=== PATIENT | female | born 1945 | race Caucasian/White ===

== ENCOUNTER 2016-06-23 12:37 | Observation (INO) | payer MEDICARE, OTHER ==
[2016-06-19 13:32] LABS: BASOPHILS 0.2 %; BASOPHILS ABSOLUTE 0.02 10/3/uL (0.0-0.16); EOSINOPHILS 1.8 %; EOSINOPHILS ABSOLUTE 0.15 10/3/uL (0.0-0.53); IMMATURE GRANULOCYTES 0.2 %; IMMATURE GRANULOCYTES ABSOLUTE 0.02 10/3/uL (0.0-0.11); LYMPHOCYTES 28.3 %; LYMPHOCYTES ABSOLUTE 2.36 10/3/uL (0.67-4.30); MEAN CORPUS HGB CONC 34.3 g/dL (32.0-36.0); MEAN CORPUSCULAR HEMOGLOB 29.4 pg (26.0-34.0); MEAN CORPUSCULAR VOLUME 85.8 fL (80-100); MEAN PLATELET VOLUME 11.2 fL (9.2-13.0); MONOCYTES 4.8 %; NEUTROPHILS 64.7 %; NEUTROPHILS ABSOLUTE 5.38 10/3/uL (2.02-8.40); PLATELET COUNT 310 10/3/uL (150-400); RBC DISTRIBUTION WIDTH 12.7 % (12.0-16.0); RED CELL COUNT 4.66 10/6/uL (4.0-5.6); WHITE BLOOD CELLS 8.3 10/3/uL (4.5-10.5)
[2016-06-19 13:33] LABS: HEMOGLOBIN 13.7 g/dL (12.0-16.0)
[2016-06-19 13:34] LABS: MANUAL DIFF NO %
[2016-06-19 13:48] LABS: CHLORIDE, SERUM 103 MMOL/L (96-112); CREATININE 1.04 MG/DL (0.55-1.02); GFR AFRICAN AMERICAN 63 ML/MIN (>=60); GFR NON AFRICAN AMERICAN 54 ML/MIN (>=60); GLUCOSE, SERUM 103 MG/DL (60-99); SODIUM, SERUM 144 MMOL/L (135-148)
[2016-06-19 13:49] LABS: BUN (BLOOD UREA NITROGEN) 16 MG/DL (6-23); CALCIUM, SERUM 9.8 MG/DL (8.5-10.4); CO2 (CARBON DIOXIDE) 29 MMOL/L (24-34); POTASSIUM, SERUM 5.1 MMOL/L (3.5-5.3)
--- NOTE | ~2016-06-23 | OP ---
Record Of Operation [facility] [address] [place]. [address] NAME: AV PINTO : 45 STATUS : ADM IN PAT#: [id number] AGE: 70 ADM/REG DATE : 06/23/16 MR#: [id number] REPORT SERV DATE: 06/24/16 DICTATED BY: JAVAN WHITE III DATE: 06/23/16 REPORT STATUS : Draft TRANSCRIBED BY: MODL DATE: 06/23/16 DATE OF PROCEDURE: 06/23/2016 SURGEON: Dr. Javan White PROCEDURE: Cystoscopy with bilateral retrogrades and bladder biopsies. PREOPERATIVE DIAGNOSIS: Possible bladder tumor. 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 DESCRIPTION OF PROCEDURE: Following induction of adequate general anesthesia, the patient was placed in the dorsal lithotomy position, prepped and draped in a sterile fashion. The urethra was normal. She had a large rectocele. The bladder base was unremarkable. On the right lateral wall, there were some patches of very erythematous mucosa and one area was slightly raised. There were no papillary tumors. The bladder was inspected with both 30 and 70 degree lenses. After I drained the bladder to place a 70 degree, these areas on the right lateral wall bled freely. It was somewhat difficult to get control of this; however, I found the area in question and did fairly small cold cup biopsy and saw a small amount of fat. I had assumed her bladder wall was thickened from the CT; however, the mucosa was extremely friable and bled with each filling. I was able to get 4 to 5 biopsies of the 2 erythematous areas. These were then fulgurated and reasonable hemostasis was obtained. There were several areas on the lateral wall and more posterior and these were initially normal but after several fillings cracked and bled. A 22-[place] Pa was placed with a 10 mL balloon and irrigated light pink. We will leave her on slow irrigation. 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 Unfortunately I felt that a loop resection of this would probably lead to a perforation. She tolerated the procedure well. OB/MODL Javan White III, M.D. / [id number] CC: Deshawn Guerrero III, M.D.
[~2016-06-23 12:37] MED LIST: ACET500CAP PO; AMOXIL500 MG PO; ASAB PO; ATEN100 PO; AVAPRO300 MG PO; BUM1 PO; C5 PO; CITRACAL PO; ESTRACE1 MG PO; EXFORGE1 TA3 PO; FLEX PO; LIPITOR40 PO; MULTIPLE VIT PO; NORCO1 TA1 PO; NORV10 PO; PCET PO; PEP20 PO; PHOSPHA 250 PO; PRILOSEC40 MG PO; RANITIDINE300 MG PO; TUMSROLL PO; VITAMIN D2000 UNIT PO; VITAMIN D31000 UNIT PO; WELLXL300 PO
[2016-06-24] MEDS ORDERED: DITRO5 PO (11:38)
[2016-12-02] MEDS ORDERED: PREMARIN CREAM TOP (12:19)
== END 2016-06-24 19:21 | disposition home or self-care (01) ==
LOC: SDC 12:37 → 4SO 20:30
PROVIDERS: Urology
PROC: 0TBB8ZX Excision of Bladder, Via Natural or Artificial Opening Endoscopic, Diagnostic (ICD-10-PCS; principal; 2016-06-23 14:30)
DX: N30.20 Other chronic cystitis without hematuria (principal); N32.89 Other specified disorders of bladder; E78.5 Hyperlipidemia, unspecified; I12.9 Hypertensive chronic kidney disease with stage 1 through stage 4 chronic kidney disease, or unspecified chronic kidney disease; M19.90 Unspecified osteoarthritis, unspecified site; K31.84 Gastroparesis; E78.00 Pure hypercholesterolemia, unspecified; N18.2 Chronic kidney disease, stage 2 (mild); E66.9 Obesity, unspecified; L40.9 Psoriasis, unspecified; Z90.89 Acquired absence of other organs; Z90.710 Acquired absence of both cervix and uterus; Z90.49 Acquired absence of other specified parts of digestive tract; Z98.890 Other specified postprocedural states; Z79.52 Long term (current) use of systemic steroids; Z88.8 Allergy status to other drugs, medicaments and biological substances; Z87.891 Personal history of nicotine dependence; Z68.33 Body mass index [BMI] 33.0-33.9, adult
CPT/HCPCS: 36415; 71020; 74420; 80048; 85025; 88305; 93005; A9270-GY; G0378; J2250; J2270; J2370; J2405; J2710; J3010; Q9967